=== PATIENT | male | born 1975 | race Two or more races ===

== ENCOUNTER 2025-03-18 18:56 | Emergency (ER) | payer MEDICAID, OTHER ==
[~2025-03-18] VITALS: Ht 165.1 cm; Wt 78.6 kg
[2025-03-18] MEDS: cefTRIAXone SOD 1,000 MG VL IM ONE (20:45)
--- NOTE | 2025-03-18 20:48 | ED.PDOC ---
Eye-HPI HPI Comments 49-year-old male who presents to the ED for complaint of sore throat. Patient states he has been having a sore throat since Tuesday night. Patient states that he was in urgent care today and prescribed antibiotics and pain medications. Patient presents to daughter who states they have been unable to fill the prescription for antibiotics due to cost but states they have been taking pain medications. Patient in the ED now otherwise denies any other sy mptoms. Patient otherwise has stable vitals in the ED Chief Complaint: Sore Throat Time Seen by MD: 20:46 Reviewed Notes: Medications, Allergies Allergies: Coded Allergies: NO KNOWN ALLERGIES (Unverified , 03/18/25) Information Source: Patient Mode of Arrival: Ambulatory Brought in by: Daughter Past Medical History PAST MEDICAL HISTORY: Denies Surgical History: Denies all surgeries Family History Family History: Reviewed,noncontributory to illness Social History Smoker: Non-Smoker Alcohol: Denies ETOH Use Drugs: Denies Drug Use Lives In: Home Constitutional: denies: chills, diaphoresis, fatigue, fever, malaise, sweats, weakness, others EENTM: reports: throat pain; denies: blurred vision, double vision, ear bleeding, ear discharge, ear drainage, ear pain, ear ringing, eye pain, eye redness, hearing loss, mouth pain, mouth swelling, nasal discharge, nose bleeding, nose congestion, nose pain, photophobia, tearing, throat swelling, voice changes, others Respiratory: denies: cough, hemoptysis, orthopnea, SOB at rest, shortness of breath, SOB with excertion, stridor, wheezing, others Cardiovascular: denies: chest pain, dizzy spells, diaphoresis, Dyspnea on exertion, edema, irregular heart beat, left arm pain, lightheadedness, palpitations, PND, syncope, others Gastrointestinal: denies: abdomen distended, abdominal pain, blood streaked bowels, constipated, diarrhea, dysphagia, difficulty swallowing, hematemesis, melena, nausea, poor appetite, poor fluid intake, rectal bleeding, rectal pain, vomiting, others Genitourinary: denies: burning, dysuria, flank pain, frequency, hematuria, incontinence, penile discharge, penile sore, pain, testicle pain, testicle swelling, urgency, others Neurological: denies: dizziness, fainting, headache, left sided numbness, left sided weakness, numbness, paresthesia, pre-existing deficit, right sided numbness, right sided weakness, seizure, speech problems, tingling, tremors, weakness, others Musculoskeletal: denies: back pain, gout, joint pain, joint swelling, muscle pain, muscle stiffness, neck pain, others Integumetry: denies: bruises, change in color, change in hair/nails, dryness, laceration, lesions, lumps, rash, wounds, others Allergic/Immunocompromised: denies: Difficulty Healing, Frequent Infections, Hives, Itching, others Hematologic/Lymphatic: denies: anemia, blood clots, easy bleeding, easy bruising, swollen glands, others Endocrine: denies: excessive hunger, excessive sweating, excessive thirst, excessive urination, flushing, intolerance to cold, intolerance to heat, unexplained weight gain, unexplained weight loss, others Psychiatric: denies: anxiety, bipolar disorder, depression, hopeless, panic disorder, schizophrenia, sleepless, suicidal, others All Other Systems: Reviewed and Negative Physical Exam General Appearance: No Apparent Distress, Normal HEENT: Other (Oropharynx noted to have associated erythema) Neck: Full Range of Motion, Non-Tender, Normal, Normal Inspection Respiratory: Chest Non-Tender, Lungs Clear, No Accessory Muscle Use, No Respiratory Distress, Normal Breath Sounds Cardiovascular: No Edema, No JVD, No Murmur, No Gallop, Normal Peripheral Pulses, Regular Rate/Rhythm Breast Exam: Deferred Gastrointestinal: No Organomegaly, Non Tender, No Pulsatile Mass, Normal Bowel Sounds, Soft Genitalia: Deferred Pelvic: Deferred Rectal: Deferred Extremities: No calf tenderness, Normal capillary refill, Normal inspection, Normal range of motion, Non-tender, No pedal edema Musculoskeletal : Apperance: Normal Neurologic: Alert, caustic mixer II-XII nml as Tested, No Motor Deficits, Normal Affect, Normal Mood, No Sensory Deficits Cerebellar Function: Normal Reflexes: Normal Skin: Dry, Normal Color, Warm Lymphatic: No Adenopathy Was a procedure done? Was a procedure done?: No EENT DIFF Eye: N/A Sore Throat: Peritonsillar Cellulitis, Pharyngitis, Streptococcal, Viral Pharyngitis, URI X-Ray, Labs, Meds, VS Vital Signs Date Time Temp Pulse Resp B/P (MAP) Pulse Ox O2 Delivery O2 Flow Rate FiO2 03/18/25 21:31 104 22 99 Room Air 03/18/25 21:31 100.0 104 22 136/82 (100) 99 100.0 03/18/25 18:57 98.7 102 20 131/92 99 98.7 Lab Test 03/18/25 23:07 03/18/25 21:32 Range/Units Lactic Acid Level 1.1 0.4-2.0 mmol/L White Blood Count 17.4 H 4.4-10.8 10^3/uL Red Blood Count 5.31 4.5-5.90 10^6/uL Hemoglobin 15.4 13.5-17.5 g/dL Hematocrit 45.4 41.0-53.0 % Mean Corpuscular Volume 85.5 80.0-100.0 fL Mean Corpuscular Hemoglobin 29.1 28.0-32.0 pg Mean Corpuscular Hemoglobin Concent 34.0 32.0-36.0 g/dL Red Cell Distribution Width 13.4 11.8-14.3 % Platelet Count 293 140-450 10^3/uL Mean Platelet Volume 8.3 6.9-10.8 fL Neutrophils (%) (Auto) 89.0 H 37.0-80.0 % Lymphocytes (%) (Auto) 3.8 L 10.0-50.0 % Monocytes (%) (Auto) 7.0 0.0-12.0 % Eosinophils (%) (Auto) 0.0 0.0-7.0 % Basophils (%) (Auto) 0.2 0.0-2.0 % Neutrophils # (Auto) 15.5 H 1.6-8.6 10 ^3/uL Lymphocytes # (Auto) 0.7 0.4-5.4 10 ^3/uL Monocytes # (Auto) 1.2 0-1.3 10 ^3/uL Eosinophils # (Auto) 0 0-0.8 10 ^3/uL Basophils # (Auto) 0 0-0.2 10 ^3/uL Nucleated Red Blood Cells 0.0 % Sodium Level 135 L 136-145 mmol/L Potassium Level 3.9 3.5-5.1 mmol/L Chloride Level 101 98-107 mmol/L Carbon Dioxide Level 19 L 20-31 mmol/L Anion Gap 15 5-15 Blood Urea Nitrogen 12 9-23 mg/dL Creatinine 1.09 0.700-1.30 mg/dL Glomerular Filtration Rate Calc 84 >90 mL/min BUN/Creatinine Ratio 11.0 10.0-20.0 Serum Glucose 126 H 74-106 mg/dL Calcium Level 9.9 8.7-10.4 mg/dL Current Medications Medications (Trade) Dose Ordered Sig/Joy Route Start Time Stop Time Status Last Admin Ceftriaxone Sodium (Rocephin) 1,000 mg ONCE ONCE IM 03/18/25 20:45 03/18/25 20:46 DC 03/18/25 20:45 Ketorolac Tromethamine (Toradol Injection) 30 mg ONCE ONCE IM 03/18/25 20:45 03/18/25 20:46 DC 03/18/25 21:19 X-Ray, Labs, Meds, VS Comment Patient has a elevated white count, patient has antibiotics at home. No signs of sepsis Patient advised to continue antibiotics he was prescribed earlier today. Time of 1ST Reevaluation: 21:15 Reevaluation 1ST: Unchanged Patient Education/Counseling: Diagnosis, Treatment, Need For Follow Up (Follow up with PCP at next available appointment. Return to the emergency department if symptoms worsen.) Family Education/Counseling: Diagnosis, Treatment SEPSIS Sepsis Screen Date sepsis recognized/suspect: Mar 18, 2025 Time Sepsis recognized/suspect: 1856 Recent Procedure: No On Antibiotic Therapy: No Respiratory Rate >20: No Heart Rate >90: Yes Temp<36 C (96.8 F) or >38.3 C: No SBP <90 or MAP <65 mmHG: No New Acute Mental Status Change: No Is the patient on CPAP, BIPAP,: No Vital Signs Date Time Temp Pulse Resp B/P (MAP) Pulse Ox O2 Delivery O2 Flow Rate FiO2 03/18/25 21:31 104 22 99 Room Air 03/18/25 21:31 100.0 104 22 136/82 (100) 99 100.0 03/18/25 18:57 98.7 102 20 131/92 99 98.7 Laboratory Tests Test 03/18/25 21:32 03/18/25 23:07 White Blood Count 17.4 10^3/uL (4.4-10.8) H Lactic Acid Level 1.1 mmol/L (0.4-2.0) Medications Medications Dose Ordered Sig/Joy Route Start Time Stop Time Status Last Admin Dose Admin Ceftriaxone Sodium 1,000 mg ONCE ONCE IM 03/18/25 20:45 03/18/25 20:46 DC 03/18/25 20:45 Ketorolac Tromethamine 30 mg ONCE ONCE IM 03/18/25 20:45 03/18/25 20:46 DC 03/18/25 21:19 Lidocaine HCl 20 ml STK-MED ONCE .ROUTE 03/18/25 21:13 03/18/25 21:09 DC 03/18/25 21:20 Departure 1 Departure Time of Disposition: 00:23 Impression: Primary Impression: Pharyngitis Qualified Codes: J02.0 - Streptococcal pharyngitis Disposition: 01 HOME / SELF CARE / HOMELESS Condition: Fair Discharged With: Self Critical Care Note Critical Care Time?: No Stability Stability form required: No Heart Score Heart Score: Heart Score Response (Comments) Value History N/A 0 EKG N/A 0 Age N/A 0 Risk Factors N/A 0 Troponin N/A 0 Total 0 I personally scribed for NIKI URIBE ([email or web address]) on 03/18/25 at 20:48. Electronically submitted by Dino John ([email or web address]). NIKI URIBE Mar 18, 2025 20:48
[2025-03-18] MEDS: KETOROLAC TROMETH 30 MG/ML 1ML VIAL IM ONE (21:19)
[2025-03-18] MEDS: LIDOCAINE 1% HCL (LOCAL ANESTH.) INJ 20ML MDV ONE (21:20)
[2025-03-18 22:10] LABS: Hematocrit 45.4 % (41.0-53.0); Hemoglobin 15.4 g/dL (13.5-17.5); Mean Corpuscular Hemoglobin 29.1 pg (28.0-32.0); Mean Corpuscular Volume 85.5 fL (80.0-100.0); Nucleated Red Blood Cells % 0.0 %
[2025-03-18 22:19] LABS: Chloride 101 mmol/L (98-107); Potassium 3.9 mmol/L (3.5-5.1)
[2025-03-18 22:21] LABS: Anion Gap 15 (5-15); Calcium 9.9 mg/dL (8.7-10.4)
[2025-03-18 22:26] LABS: BUN/Creatinine Ratio 11.0 (10.0-20.0); Blood Urea Nitrogen 12 mg/dL (9-23)
[2025-03-18 22:42] LABS: Carbon Dioxide 19 mmol/L (20-31); Glucose 126 mg/dL (74-106); Sodium 135 mmol/L (136-145)
[2025-03-19 00:49] VITALS: BP 111/77; PULSE 97; RESP 20; TEMP 98.2; O2SAT 97
[2025-03-20] MEDS ORDERED: CLIN1CAP70 PO (15:54)
== END 2025-03-19 00:51 | disposition home or self-care (01) ==
LOC: ER 18:56
DX: J02.9 Acute pharyngitis, unspecified (principal); Z79.899 Other long term (current) drug therapy
CPT/HCPCS: 36415; 80048; 83605; 85025; 96372; 99284; J0696; J1885; J2003

== ENCOUNTER 2025-03-20 12:21 | Emergency (ER) | payer MEDICAID ==
[~2025-03-20] VITALS: Ht 165.1 cm; Wt 64.0 kg
[2025-03-20 12:23] VITALS: BP 127/84; RESP 18; TEMP 97.7; O2SAT 100
[2025-03-20 12:33] VITALS: PULSE 87
--- NOTE | 2025-03-20 13:26 | ED.PDOC ---
History of Present Illness HPI Comments 49-year-old male presents to the ER in a wheelchair being pushed by daughter who is translating for the patient who is Wolof-speaking and a chief complaint of a sore throat. Daughter reports that the patient originally went to the urgent care [facility] and fast track on Tuesday of 2024 and was diagnosed with pharyngitis, the patient prescribed Augmentin, Tylenol and prednisolone. Explained to patient daughter states the medications are working for the relief of pain or symptoms. Denies any other symptoms at this time. Denies chills, fever, N/V/D, SOB, CP. No other associated symptoms, modifiers, recent injuries or sick contacts present at this time. Chief Complaint: Sore Throat Time Seen by MD: 13:20 Reviewed Notes: Nurses Notes, Medications, Allergies Allergies: Coded Allergies: NO KNOWN ALLERGIES (Unverified , 03/18/25) Information Source: Patient, Relative (Child) Mode of Arrival: Wheelchair Severity: Moderate Timing: Days Duration: Since onset, Days Prehospital treatment: None Past Medical History PAST MEDICAL HISTORY: Denies Surgical History: Denies all surgeries Family History Family History: Reviewed,noncontributory to illness, Unknown Social History Smoker: Non-Smoker Alcohol: Denies ETOH Use Drugs: Denies Drug Use Lives In: Home Constitutional: reports: others (Pharyngitis); denies: chills, diaphoresis, fatigue, fever, malaise, sweats, weakness EENTM: reports: throat pain, throat swelling; denies: blurred vision, double vision, ear bleeding, ear discharge, ear drainage, ear pain, ear ringing, eye pain, eye redness, hearing loss, mouth pain, mouth swelling, nasal discharge, nose bleeding, nose congestion, nose pain, photophobia, tearing, voice changes, others Respiratory: denies: cough, hemoptysis, orthopnea, SOB at rest, shortness of breath, SOB with excertion, stridor, wheezing, others Cardiovascular: denies: chest pain, dizzy spells, diaphoresis, Dyspnea on exertion, edema, irregular heart beat, left arm pain, lightheadedness, palpitations, PND, syncope, others Gastrointestinal: denies: abdomen distended, abdominal pain, blood streaked bowels, constipated, diarrhea, dysphagia, difficulty swallowing, hematemesis, melena, nausea, poor appetite, poor fluid intake, rectal bleeding, rectal pain, vomiting, others Genitourinary: denies: burning, dysuria, flank pain, frequency, hematuria, incontinence, penile discharge, penile sore, pain, testicle pain, testicle swelling, urgency, others Neurological: denies: dizziness, fainting, headache, left sided numbness, left sided weakness, numbness, paresthesia, pre-existing deficit, right sided numbness, right sided weakness, seizure, speech problems, tingling, tremors, weakness, others Musculoskeletal: denies: back pain, gout, joint pain, joint swelling, muscle pain, muscle stiffness, neck pain, others Integumetry: denies: bruises, change in color, change in hair/nails, dryness, laceration, lesions, lumps, rash, wounds, others Allergic/Immunocompromised: denies: Difficulty Healing, Frequent Infections, Hives, Itching, others Hematologic/Lymphatic: denies: anemia, blood clots, easy bleeding, easy bruising, swollen glands, others Endocrine: denies: excessive hunger, excessive sweating, excessive thirst, excessive urination, flushing, intolerance to cold, intolerance to heat, unexplained weight gain, unexplained weight loss, others Psychiatric: denies: anxiety, bipolar disorder, depression, hopeless, panic disorder, schizophrenia, sleepless, suicidal, others All Other Systems: Reviewed and Negative Physical Exam General Appearance: Moderate Distress, Normal HEENT: Normal ENT Inspection, Pharyngeal Erythema, TMs Normal Neck: Full Range of Motion, Non-Tender, Normal, Normal Inspection Respiratory: Chest Non-Tender, Lungs Clear, No Accessory Muscle Use, No Res piratory Distress, Normal Breath Sounds Cardiovascular: No Edema, No JVD, No Murmur, No Gallop, Normal Peripheral Pulses, Regular Rate/Rhythm Breast Exam: Deferred Gastrointestinal: No Organomegaly, Non Tender, No Pulsatile Mass, Normal Bowel Sounds, Soft Genitalia: Deferred Pelvic: Deferred Rectal: Deferred Extremities: No calf tenderness, Normal capillary refill, Normal inspection, Normal range of motion, Non-tender, No pedal edema Musculoskeletal : Apperance: Normal Neurologic: Alert, barrel rifler hook II-XII nml as Tested, No Motor Deficits, Normal Affect, Normal Mood, No Sensory Deficits Cerebellar Function: Normal Reflexes: Normal Skin: Dry, Normal Color, Warm Peripheral Pulses: 3+ Radial (R), 3+ Radial (L) Lymphatic: No Adenopathy Was a procedure done? Was a procedure done?: No Differential Dx Considerations may include: Pharyngitis Electrolyte imbalance X-Ray, Labs, Meds, VS Vital Signs Date Time Temp Pulse Resp B/P (MAP) Pulse Ox O2 Delivery O2 Flow Rate FiO2 03/20/25 12:33 87 03/20/25 12:23 97.7 92 18 127/84 100 97.7 Current Medications Medications (Trade) Dose Ordered Sig/Joy Route Start Time Stop Time Status Last Admin Methylprednisolone Sodium Succinate (Solu Medrol) 125 mg ONCE ONCE IM 03/20/25 13:30 03/20/25 13:31 DC 03/20/25 13:30 Ketorolac Tromethamine (Toradol Injection) 60 mg ONCE ONCE IM 03/20/25 13:30 03/20/25 13:31 DC 03/20/25 13:30 Ceftriaxone Sodium (Rocephin) 1,000 mg ONCE ONCE IM 03/20/25 13:30 03/20/25 13:31 DC 03/20/25 13:30 Patient alert. Came in because of sore throat. Examination he does have pharyngeal erythema. Vitals stable. Currently on antibiotics. Was given steroid. Was given Toradol. Was given Rocephin. No leg swelling. No chest pain. No shortness a breath. Reviewed his previous visit. Was told to continue taking his antibiotics. Was given prescription of clindamycin. Explained to the family. Was told to follow up with his primary care physician. Was told to come back if there is any problem. Time of 1ST Reevaluation: 13:50 Reevaluation 1ST: Unchanged Patient Education/Counseling: Diagnosis, Treatment, Prognosis Family Education/Counseling: No Family Present SEPSIS Sepsis Screen Date sepsis recognized/suspect: Mar 20, 2025 Time Sepsis recognized/suspect: 1226 Recent Procedure: No On Antibiotic Therapy: No Respiratory Rate >20: No Heart Rate >90: No Temp<36 C (96.8 F) or >38.3 C: No SBP <90 or MAP <65 mmHG: No New Acute Mental Status Change: No Is the patient on CPAP, BIPAP,: No Physician Orders Electrocardigram (03/20/25 12:28) Vital Signs Date Time Temp Pulse Resp B/P (MAP) Pulse Ox O2 Delivery O2 Flow Rate FiO2 03/20/25 12:33 87 03/20/25 12:23 97.7 92 18 127/84 100 97.7 Medications Medications Dose Ordered Sig/Joy Route Start Time Stop Time Status Last Admin Dose Admin Ceftriaxone Sodium 1,000 mg ONCE ONCE IM 03/20/25 13:30 03/20/25 13:31 DC 03/20/25 13:30 Ketorolac Tromethamine 60 mg ONCE ONCE IM 03/20/25 13:30 03/20/25 13:31 DC 03/20/25 13:30 Methylprednisolone Sodium Succinate 125 mg ONCE ONCE IM 03/20/25 13:30 03/20/25 13:31 DC 03/20/25 13:30 Departure 1 Departure Time of Disposition: 15:53 Impression: Primary Impression: Pharyngitis Qualified Codes: J02.9 - Acute pharyngitis, unspecified Disposition: HOME / SELF CARE / HOMELESS Condition: Good e-Prescriptions Clindamycin Hcl (Clindamycin Hcl) 300 Mg Cap 1 CAP PO TID for 10 Days, #30 CAP Prov: GHASSAN CRUM MD 03/20/25 Discharged With: Self Critical Care Note Critical Care Time?: No Stability Stability form required: No Heart Score Heart Score: Heart Score Response (Comments) Value History N/A 0 EKG N/A 0 Age N/A 0 Risk Factors N/A 0 Troponin N/A 0 Total 0 I personally scribed for GHASSAN CRUM MD ([email or web address]) on 03/20/25 at 13:26. Electronically submitted by Blake Quinones ([email or web address]). GHASSAN CRUM MD Mar 20, 2025 13:26
[2025-03-20] MEDS: methylPREDNISolone SOD SUCC 125 MG/2 ML VL IM ONE (13:30)
[2025-03-20] MEDS: cefTRIAXone SOD 1,000 MG VL IM ONE (13:30)
[2025-03-20] MEDS: KETOROLAC TROMETH 60MG/2ML VIAL IM ONE (13:30)
[2025-03-20] MEDS: LIDOCAINE 1% HCL (LOCAL ANESTH.) INJ 20ML MDV ONE (14:21)
[2025-03-20] MEDS ORDERED: CLIN1CAP70 PO (15:54)
--- NOTE | 2025-03-21 07:00 | ECG ---
[facility] Test Date: 2025-03-20 Test Time: 12:33:24 Pat Name: SILVIA CASSIDY Department: ED Room: Gender: M Compound Mixer: CRISTOPHER : 1975 Requested By: CATIE MARTINEZ Order Number: [id number] Reading MD: Measurements Intervals [place] Rate: 87 P: 32 MI: 128 QRS: 28 QRSD: 101 T: 16 QT: 372 QTc: 448 Interpretive Statements Sinus rhythm RSR' in V1 or V2, right VCD or RVH Nonspecific T abnormalities, anterior leads Baseline wander in lead(s) V3,V4,V5 Please click the below link to view image of tracing.
== END 2025-03-20 16:26 | disposition home or self-care (01) ==
LOC: ER 12:24
DX: J02.9 Acute pharyngitis, unspecified (principal); Z79.899 Other long term (current) drug therapy
CPT/HCPCS: 93005; 96372; 99284; J0696; J1885; J2003; J2919